=== PATIENT | female | born 1955 | race Asian ===

== ENCOUNTER 2016-10-24 19:39 | Emergency (ER) | payer OTHER ==
[~2016-10-24] VITALS: Ht 165.1 cm; Wt 104.5 kg
[2016-10-24] MEDS ORDERED: SIMV-260 PO (19:58)
[2016-10-24] MEDS ORDERED: GLIP5 PO (19:58)
[2016-10-24] MEDS ORDERED: METO50 PO (19:58)
[2016-10-24] MEDS ORDERED: LOSA50TA37 PO (19:58)
[2016-10-24] MEDS ORDERED: METF500T4 PO (19:58)
[2016-10-24] MEDS ORDERED: KETOROLAC TROMETHAMINE 30 MG/ML VIAL IM ONE (20:45)
[2016-10-24] MEDS ORDERED: LIDOCAINE HCL 5% TRANSDERMAL PATCH TD ONE (20:45)
[2016-10-24] MEDS ORDERED: CYCLOBENZAPRINE HCL 10 MG TABLET PO ONE (20:45)
[2016-10-24] MEDS ORDERED: MORPHINE SULFATE 2 MG/ML SYRINGE IVP ONE (21:15)
[2016-10-24 21:37] LABS: GLUCOSE,POINT OF CARE 161 MG/DL (70-110)
[2016-10-25 00:36] VITALS: BP 138/73
== END 2016-10-25 00:37 | disposition home or self-care (01) ==
LOC: EMS 19:42
DX: M54.5 Low back pain (principal); M25.511 Pain in right shoulder; E11.9 Type 2 diabetes mellitus without complications; E78.00 Pure hypercholesterolemia, unspecified; I10 Essential (primary) hypertension; W01.0XXA Fall on same level from slipping, tripping and stumbling without subsequent striking against object, initial encounter; Y93.89 Activity, other specified; Y92.89 Other specified places as the place of occurrence of the external cause; Y99.8 Other external cause status
CPT/HCPCS: 72040; 72072; 72100; 73030; 82962; 96374; 99284; J2270